=== PATIENT | male | born 1930 | race American Indian/Alaskan Native ===

== ENCOUNTER 2018-05-24 17:52 | Observation (INO) | payer MEDICARE, BC ==
[2018-05-24 18:06] VITALS: BMI 25.6
--- NOTE | 2018-05-24 18:06 | ED PDOC ---
Arrival/HPI - General Chief Complaint: Altered Mental Status Time Seen by Provider: 05/24/18 17:54 Historian: Patient, Family (daughter and son) - History of Present Illness Time/Duration: Prior to Arrival Symptom Onset: Sudden Symptom Course: Resolved Severity Level: Severe Activities at Onset: Rest Associated Symptoms (Text): 05/24/18 18:04 Patient was sitting in a chair at the kitchen table reading the newspaper just prior to arrival when the daughter reports that he suddenly went unresponsive. His head slumped and he was drooling. He was unresponsive to verbal stimuli. There was no seizure activity. The episode lasted for several minutes and the patient is now awake alert and back to his baseline. He denies any chest pain or dyspnea. No palpitations. No abdominal pain nausea or vomiting. The son reports that he hit the back of his head one week ago, but has been fine since then. Thi s has never occurred previously. Past Medical History - Past History Past History: No Previous - Infectious Disease Hx of Infectious Diseases: None - Tetanus Immunization Tetanus Immunization: Unknown - Cardiac Hx Pacemaker: No - Pulmonary Hx Respiratory Disorders: Yes Hx Pneumonia: Yes - Neurological Hx Paralysis: No - HEENT Hx HEENT Disorder: No (WEARS RX GLASSES) Hx Cataracts: Yes (LENS IMPLANT TO LEFT EYE,CATARACT SX RIGHT EYE) - Renal Hx Renal Disorder: No - Endocrine/Metabolic Hx Hypothyroidism: Yes - Hematological/Oncological Hx Blood Transfusions: No Hx Blood Transfusion Reaction: No - Integumentary Hx Dermatological Disorder: Yes (PATCHY DARKENED SKIN DICOLORATION TO ELIZABETH LE.AT TIMES ITCHY.) - Musculoskeletal/Rheumatological Hx Musculoskeletal Disorders: Yes (SPINAL STENOSIS) - Gastrointestinal Hx Gastrointestinal Disorders: No - Genitourinary/Gynecological Hx Reproductive Disorders: Yes - Psychiatric Hx Emotional Abuse: No Hx Physical Abuse: No Hx Substance Use: No - Past Surgical History Past Surgical History: No Previous - Surgical History Hx Cataract Extraction: Yes (Lt eye) - Anesthesia Hx Anesthesia: Yes Hx Anesthesia Reactions: No Hx Malignant Hyperthermia: No - Suicidal Assessment Feels Threatened In Home Enviroment: No Family/Social History - Physician Review Nursing Documentation Reviewed: Yes Family/Social History: Unknown Family HX Smoking Status: Never Smoked Hx Alcohol Use: Yes (SOCIALLY) Hx Substance Use: No Hx Substance Use Treatment: No Allergies/Home Meds Allergies/Adverse Reactions: Allergies tramadol HCl [From Ultra] Adverse Reaction (Mild, Verified 11/03/15 09:50) DIZZINESS NOTED ON H&P, PT REPORTS NOT REMEMBERING EXACTLY. Home Medications: Home Meds Medication Instructions Recorded Confirmed Dutasteride 0.5 mg PO DAILY 09/11/15 05/24/18 Folic Acid 1 tab PO DAILY 05/24/18 05/24/18 Memantine [Namenda] 1 tab PO DAILY 05/24/18 05/24/18 RX: Levothyroxine [Synthroid] 75 mcg PO QOTHERDAY 05/24/18 05/24/18 RX: Levothyroxine [Synthroid] 88 mcg PO QOTHERDAY 05/24/18 05/24/18 Review of Systems - Physician Review All systems were reviewed & negative as marked: Yes - Review of Systems Respiratory: absent: SOB, Cough, Wheezing Cardiovascular: Syncope. absent: Chest Pain, Palpitations, SHEA Gastrointestinal: absent: Abdominal Pain, Diarrhea, Nausea, Vomiting Genitourinary Male: absent: Dysuria, Frequency, Hematuria Neurological: absent: Headache, Dizziness, Focal Weakness, Gait Changes, Speech Changes, Facial Droop, Disequilibrium, Seizure Physical Exam Temperature: Afebrile Blood Pressure: Normal Pulse: Regular Respiratory Rate: Normal Appearance: Positive for: Well-Appearing, Non-Toxic, Comfortable Pain Distress: None Mental Status: Positive for: Alert and Oriented X 3 - Systems Exam Head: Present: Atraumatic, Normocephalic Pupils: Present: PERRL Extroacular Muscles: Present: EOMI Conjunctiva: Present: Normal Ears: Present: NORMAL TM, Normal Canal. No: Erythema, TM Bulging Mouth: Present: Moist Mucous Membranes Pharnyx: No: ERYTHEMA, EXUDATE, TONSILS ENLARGED Neck: Present: Normal Range of Motion Respiratory/Chest: Present: Clear to Auscultation, Good Air Exchange, Decreased Breath Sounds. No: Respiratory Distress, Accessory Muscle Use Cardiovascular: Present: Regular Rate and Rhythm, Normal S1, S2. No: Murmurs Abdomen: No: Tenderness, Distention, Peritoneal Signs, Rebound, Guarding Upper Extremity: Present: Normal Inspection. No: Cyanosis, Edema Lower Extremity: Present: Normal Inspection. No: Edema Neurological: Present: GCS=15, CN II-XII Intact, Speech Normal, Motor Func Grossly Intact, Normal Sensory Function, Normal Cerebellar Funct Skin: Present: Warm, Dry, Normal Color. No: Rashes Psychiatric: Present: Alert, Oriented x 3, Normal Insight, Normal Concentration Medical Decision Making ED Course and Treatment: 05/24/18 18:07 EKG shows normal sinus rhythm rate approximately [address] or T-wave changes. 05/24/18 19:22 Discussed with the medical observer and house physician. Patient will be placed on telemetry observation for syncope. - RAD Interpretation Radiology Orders: 05/24/18 18:02 HEAD W/O CONTRAST [CT] Stat 05/24/18 18:03 CHEST PORTABLE [RAD] Stat CT scan of the head as read by the radiologist shows no acute findings. X-ray chest one view as read by the radiologist shows stable findings and no acute findings. Dairy Equipment Specialist: Radiologist Disposition/Present on Arrival - Present on Arrival Any Indicators Present on Arrival: No History of DVT/PE: No History of Uncontrolled Diabetes: No Urinary Catheter: No History of Decub. Ulcer: No History Surgical Site Infection Following: None - Disposition Have Diagnosis and Disposition been Completed?: Yes Diagnosis: Syncope Disposition: HOSPITALIZED Disposition Time: 19:22 Patient Plan: Observation, Telemetry Patient Problems: Current Active Problems Problem Status Onset Syncope Acute Condition: GOOD
--- NOTE | 2018-05-24 18:32 | RAD ---
Date of service: 05/24/2018 HISTORY: syncope COMPARISON: Chest radiograph dated 09/11/2015. FINDINGS: LUNGS: No active pulmonary disease. PLEURA: Stable eventration/elevation of the left hemidiaphragm. No significant pleural effusion identified, no pneumothorax apparent. CARDIOVASCULAR: Aortic atherosclerotic calcifications. Cardiomediastinal silhouette within normal limits. OSSEOUS STRUCTURES: Unchanged. VISUALIZED UPPER ABDOMEN: Normal. OTHER FINDINGS: None. IMPRESSION: No active disease.
--- NOTE | 2018-05-24 18:39 | CT ---
Date of service: 05/24/2018 PROCEDURE: CT HEAD WITHOUT CONTRAST. HISTORY: syncope COMPARISON: 04/17/2014 TECHNIQUE: Axial computed tomography images were obtained through the head/brain without intravenous contrast. Supplemental Coronal and Sagittal projections created and reviewed. Radiation dose: Total exam DLP = 82.50 mGy-cm. This CT exam was performed using one or more of the following dose reduction techniques: Automated exposure control, adjustment of the mA and/or kV according to patient size, and/or use of iterative reconstruction technique. FINDINGS: HEMORRHAGE: No intracranial hemorrhage. BRAIN: No mass effect or edema. Cortical and cerebellar atrophy, periventricular small vessel disease. VENTRICLES: Unremarkable. No hydrocephalus. CALVARIUM: Unremarkable. PARANASAL SINUSES: Chronic ethmoid air cell disease. Chronic sphenoid air cell disease. Maxillary and frontal sinuses well aerated. MASTOID AIR CELLS: Unremarkable as visualized. No inflammatory changes. OTHER FINDINGS: None. IMPRESSION: No acute intracranial abnormalities. No significant findings to account for the clinical presentation. Additional benign and/or incidental findings described above. No significant interval change compared to the prior examination(s).
[2018-05-24 18:50] LABS: BASO # 0.03 K/mm3 (0.0-2.0); BASO % 0.4 % (0.0-3.0); EOS # 0.1 (0.0-0.7); EOS % 1.7 % (1.5-5.0); GRAN # 5.51 (1.4-6.5); GRAN % 70.1 % (50.0-68.0); HEMOGLOBIN 11.5 g/dL (14.0-18.0); LYMPH # 1.5 (1.2-3.4); LYMPH % 19.5 % (22.0-35.0); MEAN CELL VOLUME 94.1 fl (80.0-105.0); MEAN CORPUSCULAR HEMOGLOBIN 29.6 pg (25.0-35.0); MEAN CORPUSCULAR HGB CONC 31.4 g/dl (31.0-37.0); MEAN PLATELET VOLUME 9.9 fl (7.0-11.0); MONO # 0.7 (0.1-0.6); MONO % 8.3 % (1.0-6.0); RBC 3.89 10^6/uL (3.5-6.1); RED CELL DISTRIBUTION WIDTH 13.1 % (11.5-14.5); WHITE BLOOD COUNT 7.9 10^3/uL (4.5-11.0)
[2018-05-24 18:59] LABS: PROTHROMBIN TIME 11.4 SECONDS (9.4-12.5)
[2018-05-24 19:00] LABS: ALB/GLOB RATIO 1.1 (1.1-1.8); ALBUMIN 3.9 g/dL (3.0-4.8); ALT/SGPT 24 U/L (7-56); AST/SGOT 30 U/L (17-59); BLOOD UREA NITROGEN 27 mg/dL (7-21); GFR NON-AFRICAN AMERICAN 44
[2018-05-24 19:11] LABS: TROPONIN I < 0.01 ng/mL
[2018-05-24 19:48] LABS: URINE BILIRUBIN NEGATIVE (NEGATIVE); URINE BLOOD NEGATIVE (NEGATIVE); URINE GLUCOSE (UA) NEGATIVE (NEGATIVE); URINE LEUKOCYTE ESTERASE NEGATIVE Leu/uL (NEGATIVE); URINE PROTEIN TRACE mg/dL (<30 mg/dL); URINE UROBILINOGEN 0.2 E.U./dL (<1 E.U./dL)
[2018-05-24 19:50] LABS: URINE APPEARANCE CLEAR (CLEAR); URINE COLOR YELLOW (YELLOW)
[2018-05-24 19:58] LABS: URINE RBC 0 - 2 /hpf (0-2); URINE WBC NEGATIVE /hpf (0-6)
[2018-05-24 19:59] LABS: URINE BACTERIA NEG (NEG)
--- NOTE | 2018-05-24 20:40 | CP.PCM.HP ---
<Robert Severino - Last Filed: 05/24/18 20:48> History of Present Illness - History of Present Illness History of Present Illness: Robert Severino DO, PGY-1 Hospitalist Admission History and Physical for Dr. Fuller CC: possible syncopal episode HPI: Mr. Pedroza is an 88 year old male with PMH of hypothyroidism, dementia, and BPH who presents to ED following a questionable syncopal episode earlier this afternoon. His daughter is at bedside and provided most of the history. She states that he appeared to have passed out while lying on the couch because he was not responsive. This episode lasted for about 5 minutes before he woke up again. He denies any post-ictal changes such as bowel/bladder incontinence or confusion afterwards. Mr. Pedroza believes he did not pass out and states that he simply fell asleep. He does not recall any pre-syncopal symptoms of dizziness, blurred vision, or FLORES. Other than the syncopal episode, Mr. Pedroza offers no complaints and denies fever/chills, CP, SOB, abdominal pain/nausea/vomiting, FLORES, blurred vision, dizziness, slurred speech, new onset weakness, or peripheral numbness/tingling. PMH: hypothyroidism, dementia, BPH PSH: cataracts b/l Fam Hx: reviewed, non-contributory Home medications: ASA 81 daily, dutasteride 0.5 daily, synthroid 88 mcg one day 75 mcg other day, folate 1 daily, memantine 10 daily All: tramadol Soc Hx: denies tobacco, alcohol, drug use. Present on Admission - Present on Admission Any Indicators Present on Admission: No History of DVT/PE: No History of Uncontrolled Diabetes: No Urinary Catheter: No Decubitus Ulcer Present: No Review of Systems - Constitutional Constitutional: absent: Chills, Fever - EENT Eyes: absent: Blurred Vision, Change in Vision - Cardiovascular Cardiovascular: absent: Chest Pain, Dyspnea - Respiratory Respiratory: absent: Cough, Dyspnea, Wheezing - Gastrointestinal Gastrointestinal: absent: Abdominal Pain, Nausea, Vomiting - Genitourinary Genitourinary: absent: Change in Urinary Stream, Difficulty Urinating - Integumentary Integumentary: absent: Change in Pigmentation, Changing Lesions Past Patient History - Infectious Disease Hx of Infectious Diseases: None - Tetanus Immunizations Tetanus Immunization: Unknown - Past Social History Smoking Status: Never Smoked - CARDIAC Hx Pacemaker: No - PULMONARY Hx Respiratory Disorders: Yes Hx Pneumonia: Yes - NEUROLOGICAL Hx Paralysis: No - HEENT Hx HEENT Problems: No (WEARS RX GLASSES) Hx Cataracts: Yes (LENS IMPLANT TO LEFT EYE,CATARACT SX RIGHT EYE) - RENAL Hx Chronic Kidney Disease: No - ENDOCRINE/METABOLIC Hx Hypothyroidism: Yes - HEMATOLOGICAL/ONCOLOGICAL Hx Blood Transfusions: No Hx Blood Transfusion Reaction: No - INTEGUMENTARY Hx Dermatological Problems: Yes (PATCHY DARKENED SKIN DICOLORATION TO ELIZABETH LE.AT TIMES ITCHY.) - MUSCULOSKELETAL/RHEUMATOLOGICAL Hx Musculoskeletal Disorders: Yes (SPINAL STENOSIS) - GASTROINTESTINAL Hx Gastrointestinal Disorders: No - GENITOURINARY/GYNECOLOGICAL Hx Reproductive Disorders: Yes - PSYCHIATRIC Hx Emotional Abuse: No Hx Physical Abuse: No Hx Substance Use: No - SURGICAL HISTORY Hx Cataract Extraction: Yes (Lt eye) - ANESTHESIA Hx Anesthesia: Yes Hx Anesthesia Reactions: No Hx Malignant Hyperthermia: No Meds Allergies/Adverse Reactions: Allergies Allergy/AdvReac Type Severity Reaction Status Date / Time tramadol HCl [From Ultram] AdvReac Mild DIZZINESS Verified 11/03/15 09:50 Physical Exam - Constitutional Appears: Non-toxic, No Acute Distress - Head Exam Head Exam: ATRAUMATIC, NORMOCEPHALIC - Eye Exam Eye Exam: EOMI, Normal appearance, PERRL - ENT Exam ENT Exam: Mucous Membranes Dry - Neck Exam Neck exam: Positive for: Full Rom, Normal Inspection - Respiratory Exam Respiratory Exam: Clear to Auscultation Bilateral, NORMAL BREATHING PATTERN. absent: Accessory Muscle Use, Rales, Rhonchi, Wheezes, Respiratory Distress - Cardiovascular Exam Cardiovascular Exam: REGULAR RHYTHM, RRR, +S1, +S2. absent: Diastolic murmur, Gallop, Rubs, Systolic Murmur - GI/Abdominal Exam GI & Abdominal Exam: Normal Bowel Sounds, Soft. absent: Guarding, Tenderness - Extremities Exam Extremities exam: Positive for: normal inspection. Negative for: pedal edema - Back Exam Back exam: NORMAL INSPECTION - Neurological Exam Neurological exam: Alert, Oriented x3 - Psychiatric Exam Psychiatric exam: Normal Affect, Normal Mood - Skin Skin Exam: Dry, Intact, Warm Results - Vital Signs Recent Vital Signs: Last Vital Signs Temp 98.1 F 05/24/18 18:05 Pulse 76 05/24/18 18:05 Resp 17 05/24/18 18:05 BP 128/82 11/02/18 18:05 Pulse Ox 95 05/24/18 18:05 - Labs Result Diagrams: 05/24/18 18:35 05/24/18 18:35 Labs: Laboratory Results - last 24 hr 05/24/18 05/24/18 05/24/18 18:01 18:35 18:35 WBC 7.9 RBC 3.89 Hgb 11.5 L Hct 36.6 L MCV 94.1 MCH 29.6 MCHC 31.4 RDW 13.1 Plt Count 146 MPV 9.9 Gran % 70.1 H Lymph % (Auto) 19.5 L Cass % (Auto) 8.3 H Eos % (Auto) 1.7 Baso % (Auto) 0.4 Gran # 5.51 Lymph # (Auto) 1.5 Cass # (Auto) 0.7 H Eos # (Auto) 0.1 Baso # (Auto) 0.03 PT 11.4 INR 1.00 APTT 26.0 Sodium Potassium Chloride Carbon Dioxide Anion Gap BUN Creatinine Est GFR ( Amer) Est GFR (Non-Af Amer) POC Glucose (mg/dL) 192 H Random Glucose Calcium Magnesium Total Bilirubin AST ALT Alkaline Phosphatase Lactate Dehydrogenase Total Creatine Kinase Troponin I Total Protein Albumin Globulin Albumin/Globulin Ratio Urine Color Urine Appearance Urine pH Ur Specific Beaver Urine Protein Urine Glucose (UA) Urine Ketones Urine Blood Urine Nitrate Urine Bilirubin Urine Urobilinogen Ur Leukocyte Esterase Urine RBC Urine WBC Ur Epithelial Cells Urine Bacteria 05/24/18 05/24/18 18:35 19:32 WBC RBC Hgb Hct MCV MCH MCHC RDW Plt Count MPV Gran % Lymph % (Auto) Cass % (Auto) Eos % (Auto) Baso % (Auto) Gran # Lymph # (Auto) Cass # (Auto) Eos # (Auto) Baso # (Auto) PT INR APTT Sodium 140 Potassium 4.2 Chloride 104 Carbon Dioxide 28 Anion Gap 13 BUN 27 H Creatinine 1.5 Est GFR ( Amer) 53 Est GFR (Non-Af Amer) 44 POC Glucose (mg/dL) Random Glucose 172 H Calcium 9.0 Magnesium 2.2 Total Bilirubin 0.4 AST 30 ALT 24 Alkaline Phosphatase 107 Lactate Dehydrogenase 430 Total Creatine Kinase 64 Troponin I < 0.01 Total Protein 7.3 Albumin 3.9 Globulin 3.4 Albumin/Globulin Ratio 1.1 Urine Color Yellow Urine Appearance Clear Urine pH 6.0 Ur Specific Beaver 1.025 Urine Protein Trace H Urine Glucose (UA) Negative Urine Ketones Trace H Urine Blood Negative Urine Nitrate Negative Urine Bilirubin Negative Urine Urobilinogen 0.2 Ur Leukocyte Esterase Negative Urine RBC 0 - 2 Urine WBC Negative Ur Epithelial Cells None Urine Bacteria Neg Assessment & Plan - Assessment and Plan (Free Text) Assessment: 88 yo M with PMH of hypothyroidism, dementia, BPH presents to ED following a possible syncopal episode. He is admitted for observation and syncopal work up. Plan: 1. Possible syncopal episode Unclear whether patient had an actual syncopal episode Will get carotid US, TTE Neuro check q6h Cardiology consult Check CBC, CMP, TSH, T3, T4, B12, vitamin D 2. Hx hypothyroidism Will check TSH to r/o hypothyroid etiology of syncope Continue home synthroid 3. Hx BPH Continue dutasteride DVT/GI PPX: sc heparin, protonix Full Code HHD Monitor on telemetry Case and plan reviewed and discussed with my attending Dr. Alina Severino, DO IM Resident PGY-1 <Tg Fuller - Last Filed: 05/24/18 21:06> Results - Vital Signs Recent Vital Signs: Last Vital Signs Temp 98.1 F 05/24/18 18:05 Pulse 71 05/24/18 20:45 Resp 18 05/24/18 20:45 BP 142/83 05/24/18 20:45 Pulse Ox 98 05/24/18 20:45 - Labs Result Diagrams: 05/24/18 18:35 05/24/18 18:35 Labs: Laboratory Results - last 24 hr 05/24/18 05/24/18 05/24/18 18:01 18:35 18:35 WBC 7.9 RBC 3.89 Hgb 11.5 L Hct 36.6 L MCV 94.1 MCH 29.6 MCHC 31.4 RDW 13.1 Plt Count 146 MPV 9.9 Gran % 70.1 H Lymph % (Auto) 19.5 L Cass % (Auto) 8.3 H Eos % (Auto) 1.7 Baso % (Auto) 0.4 Gran # 5.51 Lymph # (Auto) 1.5 Cass # (Auto) 0.7 H Eos # (Auto) 0.1 Baso # (Auto) 0.03 PT 11.4 INR 1.00 APTT 26.0 Sodium Potassium Chloride Carbon Dioxide Anion Gap BUN Creatinine Est GFR ( Amer) Est GFR (Non-Af Amer) POC Glucose (mg/dL) 192 H Random Glucose Calcium Magnesium Total Bilirubin AST ALT Alkaline Phosphatase Lactate Dehydrogenase Total Creatine Kinase Troponin I Total Protein Albumin Globulin Albumin/Globulin Ratio Urine Color Urine Appearance Urine pH Ur Specific Beaver Urine Protein Urine Glucose (UA) Urine Ketones Urine Blood Urine Nitrate Urine Bilirubin Urine Urobilinogen Ur Leukocyte Esterase Urine RBC Urine WBC Ur Epithelial Cells Urine Bacteria 05/24/18 05/24/18 18:35 19:32 WBC RBC Hgb Hct MCV MCH MCHC RDW Plt Count MPV Gran % Lymph % (Auto) Cass % (Auto) Eos % (Auto) Baso % (Auto) Gran # Lymph # (Auto) Cass # (Auto) Eos # (Auto) Baso # (Auto) PT INR APTT Sodium 140 Potassium 4.2 Chloride 104 Carbon Dioxide 28 Anion Gap 13 BUN 27 H Creatinine 1.5 Est GFR ( Amer) 53 Est GFR (Non-Af Amer) 44 POC Glucose (mg/dL) Random Glucose 172 H Calcium 9.0 Magnesium 2.2 Total Bilirubin 0.4 AST 30 ALT 24 Alkaline Phosphatase 107 Lactate Dehydrogenase 430 Total Creatine Kinase 64 Troponin I < 0.01 Total Protein 7.3 Albumin 3.9 Globulin 3.4 Albumin/Globulin Ratio 1.1 Urine Color Yellow Urine Appearance Clear Urine pH 6.0 Ur Specific Beaver 1.025 Urine Protein Trace H Urine Glucose (UA) Negative Urine Ketones Trace H Urine Blood Negative Urine Nitrate Negative Urine Bilirubin Negative Urine Urobilinogen 0.2 Ur Leukocyte Esterase Negative Urine RBC 0 - 2 Urine WBC Negative Ur Epithelial Cells None Urine Bacteria Neg Attending/Attestation - Attestation I have personally seen and examined this patient.: Yes I have fully participated in the care of the patient.: Yes I have reviewed all pertinent clinical information: Yes
[2018-05-25 00:12] VITALS: RESP 18
[2018-05-25] MEDS ORDERED: Pantoprazole 40 mg EC Tab PO SCH (06:00)
[2018-05-25] MEDS ORDERED: Levothyroxine 88 MCG TAB PO SCH (06:00)
[2018-05-25 06:31] VITALS: O2SAT 100
[2018-05-25 07:13] LABS: BASO # 0.04 K/mm3 (0.0-2.0); BASO % 0.5 % (0.0-3.0); EOS # 0.2 (0.0-0.7); EOS % 2.6 % (1.5-5.0); GRAN # 4.89 (1.4-6.5); GRAN % 60.4 % (50.0-68.0); HEMOGLOBIN 11.2 g/dL (14.0-18.0); LYMPH # 2.3 (1.2-3.4); LYMPH % 28.3 % (22.0-35.0); MEAN CELL VOLUME 93.4 fl (80.0-105.0); MEAN CORPUSCULAR HEMOGLOBIN 29.6 pg (25.0-35.0); MEAN CORPUSCULAR HGB CONC 31.6 g/dl (31.0-37.0); MONO # 0.7 (0.1-0.6); MONO % 8.2 % (1.0-6.0); RBC 3.79 10^6/uL (3.5-6.1); RED CELL DISTRIBUTION WIDTH 12.9 % (11.5-14.5); WHITE BLOOD COUNT 8.1 10^3/uL (4.5-11.0)
[2018-05-25 07:34] LABS: ALBUMIN 3.6 g/dL (3.0-4.8); CALCIUM 9.1 mg/dL (8.4-10.5)
[2018-05-25] MEDS ORDERED: DUTASTERIDE 0.5 MG PO SCH (10:00)
[2018-05-25 12:10] VITALS: BP 148/82; TEMP 97.7
--- NOTE | 2018-05-25 13:25 | CARD ---
APPROVED REPORT Date of service: 05/25/2018 EXAM: Two-dimensional and M-mode echocardiogram with Doppler and color Doppler. INDICATION SYNCOPE 2D DIMENSIONS Left Atrium (2D)2.4 (1.6-4.0cm)IVSd1.2 (0.7-1.1cm) LVDd3.4 (3.9-5.9cm)PWd1.2 (0.7-1.1cm) LVDs2.4 (2.5-4.0cm)FS (%) 31.1 % LVEF (%)60.0 (>50%) M-Mode DIMENSIONS Aortic Root3.40 (2.2-3.7cm)Aortic Cusp Exc.1.60 (1.5-2.0cm) Aortic Valve AoV Peak Byttwapo453.0cm/Britney Peak GR.7mmHg Mitral Valve MV E Mhayncbx79.1cm/sMV A Rzoayzxl76.6cm/sE/A ratio1.1 TDI Lateral E' Peak V9.75cm/sMedial E' Peak V8.97cm/sE/Lateral E'7.5 E/Medial E'8.1 Tricuspid Valve TR Peak [id number]/sRAP [id number] Peak Gr.26mmHg [id number] LEFT VENTRICLE The left ventricle is normal size. There is normal left ventricular wall thickness. The left ventricular function is normal. The left ventricular ejection fraction is within the normal range. There is normal LV segmental wall motion. Transmitral Doppler flow pattern is Grade I-abnormal relaxation pattern. RIGHT VENTRICLE The right ventricle is normal size. There is normal right ventricular wall thickness. The right ventricular systolic function is normal. ATRIA The left atrium size is normal. The right atrium size is normal. AORTIC VALVE The aortic valve is not well visualized. No aortic regurgitation is present. There is no aortic valvular stenosis. MITRAL VALVE The mitral valve is not well visualized. There is no mitral valve regurgitation noted. There is no mitral valve stenosis. TRICUSPID VALVE The tricuspid valve is normal in structure. There is mild tricuspid regurgitation. There is mild pulmonary hypertension. PULMONIC VALVE The pulmonary valve is normal in structure. There is no pulmonic valvular regurgitation. GREAT VESSELS The aortic root is normal in size. PERICARDIAL EFFUSION There is a trace pericardial effusion. <Conclusion> The left ventricle is normal size. There is normal left ventricular wall thickness. The left ventricular function is normal. The left ventricular ejection fraction is within the normal range. There is normal LV segmental wall motion. Transmitral Doppler flow pattern is Grade I-abnormal relaxation pattern. There is mild tricuspid regurgitation. There is mild pulmonary hypertension.
[2018-05-25 14:05] VITALS: PULSE 94
--- NOTE | 2018-05-25 14:30 | US ---
PROCEDURE: Bilateral carotid artery duplex ultrasound HISTORY: Carotid stenosis PHYSICIAN(S): Mulugeta Morales MD. TECHNIQUE: Duplex sonography and color-flow Doppler were used to evaluate the carotid bifurcations and limited segments of the vertebral arteries bilaterally. FINDINGS: There is mild smooth heterogeneous plaque noted at the carotid bifurcations bilaterally. The peak systolic velocity in the proximal right internal carotid artery is 69 cm/sec. This corresponds to a 20 to 39% proximal right ICA stenosis. Normal systolic velocities are noted in the proximal right external carotid artery. There is antegrade flow in the right vertebral artery. The peak systolic velocity in the proximal left internal carotid artery is 64 cm/sec. This corresponds to a 20 to 39% proximal left ICA stenosis. Normal systolic velocities are noted in the proximal left external carotid artery. There is antegrade flow in the left vertebral artery. IMPRESSION: 1. 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 2. Antegrade flow in both vertebral arteries.
--- NOTE | 2018-05-25 15:32 | CP.PCM.PN ---
<Meaghan Miller - Last Filed: 05/25/18 15:51> Subjective - Date & Time of Evaluation Date of Evaluation: 05/25/18 Time of Evaluation: 15:28 - Subjective Subjective: Meaghan Miller DO PGY-[address] Jara: Pt was seen and examined in the AM at bedside. Upon asking to clarify his story pt states that he was just tired and fell asleep reading the paper, but pts daughter states that he was unresponsive for about 5 minutes. Pt does not recall this episode, nor similar occurrences in the past. He is denying any acute overnight events and states that he is not having any pain or any acute complaints at this time. He is tolerating his diet. Pt is AOx3, denies any chest pain, nausea, vomiting, fevers, chills, cough, SOB or dysuria. Objective - Vital Signs/Intake and Output Vital Signs (last 24 hours): Temp Pulse Resp BP Pulse Ox 97.7 F 94 H 18 148/82 100 05/25/18 12:00 05/25/18 14:00 05/25/18 12:00 05/25/18 12:00 05/25/18 06:00 Intake and Output: 05/25/18 05/25/18 06:59 18:59 Intake Total 240 Output Total 630 Balance -390 - Medications Medications: Current Medications Acetaminophen (Tylenol 325mg Tab) 650 mg PO Q6H PRN PRN Reason: Pain, moderate (4-7) Aspirin (Ecotrin) 81 mg PO DAILY [facility] Last Admin: 05/25/18 09:19 Dose: 81 mg Folic Acid (Folic Acid) 1 mg PO DAILY [facility] Last Admin: 05/25/18 09:19 Dose: 1 mg Heparin Sodium (Porcine) (Heparin) 5,000 units SC Q8 [facility]; Protocol Last Admin: 05/25/18 13:05 Dose: 5,000 units Latanoprost (Xalatan Opht) 0 ml OU HS [facility] Levothyroxine Sodium (Synthroid) 75 mcg PO Q48H [facility] Levothyroxine Sodium (Synthroid) 88 mcg PO Q48H [facility] Last Admin: 05/25/18 05:31 Dose: 88 mcg Memantine (Namenda) 10 mg PO DAILY [facility] Last Admin: 05/25/18 09:19 Dose: 10 mg Home Med - (Dutasteride 0.5 Mg) 0.5 mg PO DAILY [facility] Pantoprazole Sodium (Protonix Ec Tab) 40 mg PO 0600 [facility] Last Admin: 05/25/18 05:31 Dose: 40 mg - Labs Labs: 05/25/18 06:30 05/25/18 06:30 PT 11.4 SECONDS (9.4-12.5) 05/24/18 18:35 INR 1.00 05/24/18 18:35 APTT 26.0 Seconds (25.1-36.5) 05/24/18 18:35 - Constitutional Appears: Well, Non-toxic, No Acute Distress - Head Exam Head Exam: ATRAUMATIC, NORMAL INSPECTION, NORMOCEPHALIC - Eye Exam Eye Exam: EOMI, Normal appearance Pupil Exam: PERRL - Respiratory Exam Respiratory Exam: Clear to Ausculation Bilateral, NORMAL BREATHING PATTERN. absent: Rales, Rhonchi, Wheezes - Cardiovascular Exam Cardiovascular Exam: RRR, +S1, +S2. absent: Gallop, Rubs - GI/Abdominal Exam GI & Abdominal Exam: Soft, Normal Bowel Sounds. absent: Firm, Guarding, Rigid, Tenderness - Back Exam Back Exam: NORMAL INSPECTION. absent: CVA tenderness (L), CVA tenderness (R) - Neurological Exam Neurological Exam: Alert, Awake, Oriented x3 - Psychiatric Exam Psychiatric exam: Normal Affect, Normal Mood - Skin Skin Exam: Dry, Intact, Normal Color, Warm Assessment and Plan - Assessment and Plan (Free Text) Assessment: 88 yo M with PMH of hypothyroidism, dementia, BPH presents to ED following a possible syncopal episode. Due to daughters history and pts dementia, we will do neurology work up for seizure. Plan: 1. Possible syncopal episode vs seizure - Unclear whether patient had an actual syncopal episode - Will get carotid US - B/l 20-39% proximal ICA stenosis - Echo - LVEF is within normal range, mild TR, mild Pulm HTN - Neuro check q6h - Neuro consult to r/o seizure activity - Cardiology consult - TSH - .22 - F/u free T4 2. Hx hypothyroidism - TSH .22 - F/u free T4 - Continue home synthroid 3. Hx BPH - Continue dutasteride 4. PPX - DVT/GI: sc heparin, protonix - Full Code - HHD - Monitor on telemetry Case and plan reviewed and discussed with my attending Dr. Jara <Javon Jara - Last Filed: 05/25/18 17:22> Objective - Vital Signs/Intake and Output Vital Signs (last 24 hours): Temp Pulse Resp BP Pulse Ox 97.7 F 94 H 18 148/82 100 05/25/18 12:00 05/25/18 14:00 05/25/18 12:00 05/25/18 12:00 05/25/18 06:00 Intake and Output: 05/25/18 05/25/18 06:59 18:59 Intake Total 240 Output Total 630 Balance -390 - Medications Medications: Current Medications Acetaminophen (Tylenol 325mg Tab) 650 mg PO Q6H PRN PRN Reason: Pain, moderate (4-7) Aspirin (Ecotrin) 81 mg PO DAILY [facility] Last Admin: 05/25/18 09:19 Dose: 81 mg Folic Acid (Folic Acid) 1 mg PO DAILY [facility] Last Admin: 05/25/18 09:19 Dose: 1 mg Heparin Sodium (Porcine) (Heparin) 5,000 units SC Q8 [facility]; Protocol Last Admin: 05/25/18 13:05 Dose: 5,000 units Latanoprost (Xalatan Opht) 0 ml OU HS [facility] Levothyroxine Sodium (Synthroid) 75 mcg PO Q48H [facility] Levothyroxine Sodium (Synthroid) 88 mcg PO Q48H [facility] Last Admin: 05/25/18 05:31 Dose: 88 mcg Memantine (Namenda) 10 mg PO DAILY [facility] Last Admin: 05/25/18 09:19 Dose: 10 mg Home Med - (Dutasteride 0.5 Mg) 0.5 mg PO DAILY [facility] Pantoprazole Sodium (Protonix Ec Tab) 40 mg PO 0600 [facility] Last Admin: 05/25/18 05:31 Dose: 40 mg - Labs Labs: 05/25/18 06:30 05/25/18 06:30 PT 11.4 SECONDS (9.4-12.5) 05/24/18 18:35 INR 1.00 05/24/18 18:35 APTT 26.0 Seconds (25.1-36.5) 05/24/18 18:35 Attending/Attestation - Attestation I have personally seen and examined this patient.: Yes I have fully participated in the care of the patient.: Yes I have reviewed all pertinent clinical information, including history, physical exam and plan: Yes Notes (Text): 05/25/18 17:20 Attending note; Patient seen and examined with resident. Patient is alert and awake. Denies headache, dizziness. Denies any nausea, vomiting. Denies any urinary, bowel symptoms. Patient is a 88 yo Male with PMH of hypothyroidism, dementia, BPH presents to ED following a possible syncopal episode. According to patient's daughter patient was briefly unresponsive for a few minutes . No seizure like activity noted .no significant fall or injury . Patient is currently completely awake and alert .no memory problems . CT head is negative . Recent MRI shows chronic microvascular changes. Cardiac workup is negative. Cardiac enzymes negative. Echocardiogram showed normal ejection fraction. Cardiology evaluation appreciated. Carotid Doppler without significant stenosis. Case discussed with neurology in detail. Patient can be discharged home. PT evaluation appreciated. Patient will follow up with neurology DR. bains next . Follow-up with PMD . 05/25/18 17:22
--- NOTE | 2018-05-25 15:32 | CARD ---
APPROVED REPORT Date of service: 05/25/2018 EKG Measurement Heart [id number] <Conclusion> Normal sinus rhythm Normal ECG
--- NOTE | 2018-05-25 15:39 | CARD ---
APPROVED REPORT Date of service: 05/24/2018 EKG Measurement Heart [id number] <Conclusion> Normal sinus rhythm Normal ECG
--- NOTE | 2018-05-25 17:10 | CP.PCM.DIS ---
<Meaghan Miller - Last Filed: 05/25/18 17:21> Provider - Provider Date of Admission: 05/24/18 19:20 Attending physician: Javon Jara MD Primary care physician: Harpreet Fajardo MD Time Spent in preparation of Discharge (in minutes): 45 Diagnosis - Discharge Diagnosis (1) Syncope Status: Acute Hospital Course - Lab Results Lab Results: Most Recent Lab Values WBC 8.1 10^3/uL (4.5-11.0) 05/25/18 06:30 RBC 3.79 10^6/uL (3.5-6.1) 05/25/18 06:30 Hgb 11.2 g/dL (14.0-18.0) L 05/25/18 06:30 Hct 35.4 % (42.0-52.0) L 05/25/18 06:30 MCV 93.4 fl (80.0-105.0) 05/25/18 06:30 MCH 29.6 pg (25.0-35.0) 05/25/18 06:30 MCHC 31.6 g/dl (31.0-37.0) 05/25/18 06:30 RDW 12.9 % (11.5-14.5) 05/25/18 06:30 Plt Count 151 10^3/uL (120.0-450.0) 05/25/18 06:30 MPV 10.0 fl (7.0-11.0) 05/25/18 06:30 Gran % 60.4 % (50.0-68.0) 05/25/18 06:30 Lymph % (Auto) 28.3 % (22.0-35.0) 05/25/18 06:30 [place] % (Auto) 8.2 % (1.0-6.0) H 05/25/18 06:30 Eos % (Auto) 2.6 % (1.5-5.0) 05/25/18 06:30 Baso % (Auto) 0.5 % (0.0-3.0) 05/25/18 06:30 Gran # 4.89 (1.4-6.5) 05/25/18 06:30 Lymph # (Auto) 2.3 (1.2-3.4) 05/25/18 06:30 [place] # (Auto) 0.7 (0.1-0.6) H 05/25/18 06:30 Eos # (Auto) 0.2 (0.0-0.7) 05/25/18 06:30 Baso # (Auto) 0.04 K/mm3 (0.0-2.0) 05/25/18 06:30 PT 11.4 SECONDS (9.4-12.5) 05/24/18 18:35 INR 1.00 05/24/18 18:35 APTT 26.0 Seconds (25.1-36.5) 05/24/18 18:35 Sodium 139 mmol/L (132-148) 05/25/18 06:30 Potassium 5.1 mmol/L (3.6-5.0) H 05/25/18 06:30 Chloride 107 mmol/L (98-107) 05/25/18 06:30 Carbon Dioxide 27 mmol/L (21-33) 05/25/18 06:30 Anion Gap 10 (10-20) 05/25/18 06:30 BUN 27 mg/dL (7-21) H 05/25/18 06:30 Creatinine 1.5 mg/dl (0.8-1.5) 05/25/18 06:30 Est GFR ( Amer) 53 05/25/18 06:30 Est GFR (Non-Af Amer) 44 05/25/18 06:30 POC Glucose (mg/dL) 139 mg/dL (65-110) H 05/24/18 21:42 Random Glucose 100 mg/dL (70-110) 05/25/18 06:30 Calcium 9.1 mg/dL (8.4-10.5) 05/25/18 06:30 Phosphorus 3.9 mg/dL (2.5-4.5) 05/25/18 06:30 Magnesium 2.2 mg/dL (1.7-2.2) 05/25/18 06:30 Total Bilirubin 0.6 mg/dL (0.2-1.3) 05/25/18 06:30 AST 26 U/L (17-59) 05/25/18 06:30 ALT 21 U/L (7-56) 05/25/18 06:30 Alkaline Phosphatase 100 U/L (38-126) 05/25/18 06:30 Lactate Dehydrogenase 430 U/L (333-699) 05/24/18 18:35 Total Creatine Kinase 64 U/L (35-230) 05/24/18 18:35 Troponin I < 0.01 ng/mL 05/25/18 06:30 Total Protein 7.0 g/dL (5.8-8.3) 05/25/18 06:30 Albumin 3.6 g/dL (3.0-4.8) 05/25/18 06:30 Globulin 3.4 gm/dL 05/25/18 06:30 Albumin/Globulin Ratio 1.0 (1.1-1.8) L 05/25/18 06:30 Triglycerides 47 mg/dL (35-160) 05/25/18 06:30 Cholesterol 140 mg/dL (130-200) 05/25/18 06:30 LDL Cholesterol Direct 70 mg/dL (0-129) 05/25/18 06:30 HDL Cholesterol 57 mg/dL (29-60) 05/25/18 06:30 Vitamin B12 495 pg/mL (239-931) 05/25/18 06:30 25-OH Vitamin D Total 43.5 NG/ML (30.0-100.0) 05/25/18 06:30 TSH 3rd Generation 0.22 mIU/mL (0.46-4.68) L 05/25/18 06:30 Urine Color Yellow (YELLOW) 05/24/18 19:32 Urine Appearance Clear (CLEAR) 05/24/18 19:32 Urine pH 6.0 (4.7-8.0) 05/24/18 19:32 Ur Specific [place] 1.025 (1.005-1.035) 05/24/18 19:32 Urine Protein Trace mg/dL (<30 mg/dL) H 05/24/18 19:32 Urine Glucose (UA) Negative mg/dL (NEGATIVE) 05/24/18 19:32 Urine Ketones Trace mg/dL (NEGATIVE) H 05/24/18 19:32 Urine Blood Negative (NEGATIVE) 05/24/18 19:32 Urine Nitrate Negative (NEGATIVE) 05/24/18 19: Urine Bilirubin Negative (NEGATIVE) 05/24/18 19:32 Urine Urobilinogen 0.2 E.U./dL (<1 E.U./dL) 05/24/18 19:32 Ur Leukocyte Esterase Negative Almita/uL (NEGATIVE) 05/24/18 19:32 Urine RBC 0 - 2 /hpf (0-2) 05/24/18 19:32 Urine WBC Negative /hpf (0-6) 05/24/18 19:32 Ur Epithelial Cells None /hpf (0-5) 05/24/18 19:32 Urine Bacteria Neg (NEG) 05/24/18 19:32 - Hospital Course Hospital Course: Upon Admission: Mr. Pedroza is an 88 year old male with PMH of hypothyroidism, dementia, and BPH who presents to ED following a questionable syncopal episode earlier this afternoon. His daughter is at bedside and provided most of the history. She states that he appeared to have passed out while lying on the couch because he was not responsive. This episode lasted for about 5 minutes before he woke up again. He denies any post-ictal changes such as bowel/bladder incontinence or confusion afterwards. Mr. Pedroza believes he did not pass out and states that he simply fell asleep. He does not recall any pre-syncopal symptoms of dizz iness, blurred vision, or FLORES. Other than the syncopal episode, Mr. Pedroza offers no complaints and denies fever/chills, CP, SOB, abdominal pain/nausea/vomiting, FLORES, blurred vision, dizziness, slurred speech, new onset weakness, or peripheral numbness/tingling. Hospital Course: Pt was being worked up for syncopal episode. Cardiology and neuro were put on board. Carotid artery US showed b/l 20-39% proximal ICA stenosis. ECHO showed a LVEF, mild TR, and mild pulm HTN. TSH was noted to a little low at .22. Pt had no symptomatology of syncope or seizure like activity while at the hospital. Ca rdiology and neurology both cleared the pt, but neurology will follow up with the pt as an outpt and an appointment has been scheduled for 05/30/18. The pt was informed of his clearance by both cardio and neurology and the pt shows understanding and is in agreement with the discharge plan. All pts questions and concerns were addressed before d/c. Upon Discharge: Pt was specifically instructed to: Follow up with Dr Fajardo in 1 week. Follow up with Neurology Dr Bains .You already have an appointment with him on 05/30/2018. Resume your home medications as directed. Your TSH was low. Please repeat it with your primary care doctor in 4-6 weeks. Return to the nearest hospital in case symptoms return. Pt reported understanding of the discharge instructions and is in agreement with the plan, all questions and concerns were answered. Discharge Exam - Head Exam Head Exam: ATRAUMATIC, NORMAL INSPECTION, NORMOCEPHALIC - Eye Exam Eye Exam: EOMI, Normal appearance Pupil Exam: PERRL - Respiratory Exam Respiratory Exam: Clear to PA & Lateral, NORMAL BREATHING PATTERN, UNREMARKABLE. absent: Accessory Muscle Use, Rales, Rhonchi, Wheezes, Respiratory Distress, Stridor - Cardiovascular Exam Cardiovascular Exam: RRR, +S1, +S2. absent: Gallop, Rubs - GI/Abdominal Exam GI & Abdominal Exam: Normal Bowel Sounds, Soft, Unremarkable. absent: Rigid, Tenderness - Extremities Exam Extremities exam: normal inspection, pedal pulses present - Back Exam Back exam: NORMAL INSPECTION. absent: CVA tenderness (L), CVA tenderness (R) - Neurological Exam Neurological exam: Alert, Normal Gait, Oriented x3 - Psychiatric Exam Psychiatric exam: Normal Affect, Normal Mood - Skin Skin Exam: Dry, Intact, Normal Color, Warm Discharge Plan - Follow Up Plan Condition: GOOD Disposition: HOME/ ROUTINE Instructions: Preventing Falls in the Older Adult, Near Fainting (DC) Additional Instructions: Follow up with Dr Fajardo in 1 week. Follow up with Neurology Dr Bains .You already have an appointment with him on 05/30/2018. Resume your home medications as directed. Your TSH was low. Please repeat it with your primary care doctor in 4-6 weeks. Return to the nearest hospital in case symptoms return. Referrals: Arron Bains MD [Staff Provider] - Harpreet Fajardo MD [Primary Care Provider] - <Javon Jara - Last Filed: 05/25/18 18:04> Provider - Provider Date of Admission: 05/24/18 19:20 Attending physician: Javon Jara MD Primary care physician: Harpreet Fajardo MD Hospital Course - Lab Results Lab Results: Most Recent Lab Values WBC 8.1 10^3/uL (4.5-11.0) 05/25/18 06:30 RBC 3.79 10^6/uL (3.5-6.1) 05/25/18 06:30 Hgb 11.2 g/dL (14.0-18.0) L 05/25/18 06:30 Hct 35.4 % (42.0-52.0) L 05/25/18 06:30 MCV 93.4 fl (80.0-105.0) 05/25/18 06:30 MCH 29.6 pg (25.0-35.0) 05/25/18 06:30 MCHC 31.6 g/dl (31.0-37.0) 05/25/18 06:30 RDW 12.9 % (11.5-14.5) 05/25/18 06:30 Plt Count 151 10^3/uL (120.0-450.0) 05/25/18 06:30 MPV 10.0 fl (7.0-11.0) 05/25/18 06:30 Gran % 60.4 % (50.0-68.0) 05/25/18 06:30 Lymph % (Auto) 28.3 % (22.0-35.0) 05/25/18 06:30 [place] % (Auto) 8.2 % (1.0-6.0) H 05/25/18 06:30 Eos % (Auto) 2.6 % (1.5-5.0) 05/25/18 06:30 Baso % (Auto) 0.5 % (0.0-3.0) 05/25/18 06:30 Gran # 4.89 (1.4-6.5) 05/25/18 06:30 Lymph # (Auto) 2.3 (1.2-3.4) 05/25/18 06:30 [place] # (Auto) 0.7 (0.1-0.6) H 05/25/18 06:30 Eos # (Auto) 0.2 (0.0-0.7) 05/25/18 06:30 Baso # (Auto) 0.04 K/mm3 (0.0-2.0) 05/25/18 06:30 PT 11.4 SECONDS (9.4-12.5) 05/24/18 18:35 INR 1.00 05/24/18 18:35 APTT 26.0 Seconds (25.1-36.5) 05/24/18 18:35 Sodium 139 mmol/L (132-148) 05/25/18 06:30 Potassium 5.1 mmol/L (3.6-5.0) H 05/25/18 06:30 Chloride 107 mmol/L (98-107) 05/25/18 06:30 Carbon Dioxide 27 mmol/L (21-33) 05/25/18 06:30 Anion Gap 10 (10-20) 05/25/18 06:30 BUN 27 mg/dL (7-21) H 05/25/18 06:30 Creatinine 1.5 mg/dl (0.8-1.5) 05/25/18 06:30 Est GFR ( Amer) 53 05/25/18 06:30 Est GFR (Non-Af Amer) 44 05/25/18 06:30 POC Glucose (mg/dL) 139 mg/dL (65-110) H 05/24/18 21:42 Random Glucose 100 mg/dL (70-110) 05/25/18 06:30 Calcium 9.1 mg/dL (8.4-10.5) 05/25/18 06:30 Phosphorus 3.9 mg/dL (2.5-4.5) 05/25/18 06:30 Magnesium 2.2 mg/dL (1.7-2.2) 05/25/18 06:30 Total Bilirubin 0.6 mg/dL (0.2-1.3) 05/25/18 06:30 AST 26 U/L (17-59) 05/25/18 06:30 ALT 21 U/L (7-56) 05/25/18 06:30 Alkaline Phosphatase 100 U/L (38-126) 05/25/18 06:30 Lactate Dehydrogenase 430 U/L (333-699) 05/24/18 18:35 Total Creatine Kinase 64 U/L (35-230) 05/24/18 18:35 Troponin I < 0.01 ng/mL 05/25/18 06:30 Total Protein 7.0 g/dL (5.8-8.3) 05/25/18 06:30 Albumin 3.6 g/dL (3.0-4.8) 05/25/18 06:30 Globulin 3.4 gm/dL 05/25/18 06:30 Albumin/Globulin Ratio 1.0 (1.1-1.8) L 05/25/18 06:30 Triglycerides 47 mg/dL (35-160) 05/25/18 06:30 Cholesterol 140 mg/dL (130-200) 05/25/18 06:30 LDL Cholesterol Direct 70 mg/dL (0-129) 05/25/18 06:30 HDL Cholesterol 57 mg/dL (29-60) 05/25/18 06:30 Vitamin B12 495 pg/mL (239-931) 05/25/18 06:30 25-OH Vitamin D Total 43.5 NG/ML (30.0-100.0) 05/25/18 06:30 TSH 3rd Generation 0.22 mIU/mL (0.46-4.68) L 05/25/18 06:30 Urine Color Yellow (YELLOW) 05/24/18 19:32 Urine Appearance Clear (CLEAR) 05/24/18 19:32 Urine pH 6.0 (4.7-8.0) 05/24/18 19:32 Ur Specific [place] 1.025 (1.005-1.035) 05/24/18 19:32 Urine Protein Trace mg/dL (<30 mg/dL) H 05/24/18 19:32 Urine Glucose (UA) Negative mg/dL (NEGATIVE) 05/24/18 19:32 Urine Ketones Trace mg/dL (NEGATIVE) H 05/24/18 19:32 Urine Blood Negative (NEGATIVE) 05/24/18 19:32 Urine Nitrate Negative (NEGATIVE) 05/24/18 19:32 Urine Bilirubin Negative (NEGATIVE) 05/24/18 19:32 Urine Urobilinogen 0.2 E.U./dL (<1 E.U./dL) 05/24/18 19:32 Ur Leukocyte Esterase Negative Almita/uL (NEGATIVE) 05/24/18 19:32 Urine RBC 0 - 2 /hpf (0-2) 05/24/18 19:32 Urine WBC Negative /hpf (0-6) 05/24/18 19:32 Ur Epithelial Cells None /hpf (0-5) 05/24/18 19:32 Urine Bacteria Neg (NEG) 05/24/18 19:32 Attending/Attestation - Attestation I have personally seen and examined this patient.: Yes I have fully participated in the care of the patient.: Yes I have reviewed all pertinent clinical information, including history, physical exam and plan: Yes Notes (Text): 05/25/18 18:03 Attending note; Patient seen and examined with resident. Patient is alert and awake. Denies headache, dizziness. Denies any nausea, vomiting. Denies any urinary, bowel symptoms. Patient is a 88 yo Male with PMH of hypothyroidism, dementia, BPH presents to ED following a possible syncopal episode. According to patient's daughter patient was briefly unresponsive for a few minutes . No seizure like activity noted .no significant fall or injury. No urinary or bowel incontinence. Patient is currently completely awake and alert. CT head is negative . Recent MRI shows chronic microvascular changes. Cardiac workup is negative. Cardiac enzymes negative. Echocardiogram showed normal ejection fraction. Cardiology evaluation appreciated. Carotid Doppler without significant stenosis. Case discussed with neurology in detail. Patient can be discharged home. PT evaluation appreciated. Patient will follow up with neurology DR. bains next . Follow-up with PMD .
--- NOTE | 2018-05-25 18:04 | CON ---
DATE: 05/25/2018 NEUROLOGY CONSULT AGE: AN 88-year-old man. CHIEF COMPLAINT: Syncope. HISTORY OF PRESENT ILLNESS: An 88-year-old man with past medical history of hypothyroidism, cognitive impairment, on Namenda, BPH, who presents to the ER for a possible syncopal episode, apparent cognitive ability is the newspaper, and also was unresponsive for a few moments. No convulsive movements. No foaming of the mouth. No bowel and bladder incontinence. The patient admits he did not drink enough fluids throughout the day. In addition, he has poor sleep hygiene. He had elevated BUN as well as high potassium when he came in. CAT scan of the head shows no acute intracranial abnormality. He had an MRI in 01/2018, which showed chronic microvascular changes, but no acute intracranial abnormalities. Carotid Doppler showed 20% to 39% proximal ICA stenosis with anterior gluteal fold and vertebral arteries. He is moving all extremities. 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 Otherwise, no focal deficits seen. PAST MEDICAL HISTORY: As above. FAMILY HISTORY: Noncontributory. SOCIAL HISTORY: No illicit drug use, smoking, or EtOH abuse. ALLERGIES: TRAMADOL. REVIEW OF SYSTEMS: Fourteen-point review of systems is negative except as per the HPI. MEDICATIONS: Reviewed by nurses's reconciliation sheet. LABORATORY DATA: Sodium is 139, potassium 5.1, chloride 107, carbon dioxide 27, BUN 27, creatinine 1.5, random glucose 100. PHYSICAL EXAMINATION: VITAL SIGNS: Temperature 97.7, pulse rate 65, blood pressure 148/82, respiratory rate 18, oxygen saturation 97% on room air. GENERAL: The patient is sitting up in bed, in no acute distress. HEENT: Atraumatic, normocephalic. PERRLA. Extraocular muscles intact. NECK: Supple. No JVD, no adenopathy noted. LUNGS: Clear to auscultation. No adventitious sounds. HEART: S1 and S2, regular rate and rhythm. No murmurs, rubs, or gallops. ABDOMEN: Soft, nontender, and nondistended. Bowel sounds are present. EXTREMITIES: No clubbing. No cyanosis. Peripheral pulses 2+ felt bilaterally. NEUROLOGIC: The patient is alert and oriented to person, place, and year. Recall after 5 minutes is 0/3. Poor attention span. Slow thought process. Slow affect. Cranial nerves II through XII are intact. Motor exam: Moves all extremities equally. No pronator drift seen. Sensory exam: Light touch, pinprick, proprioception and vibration are intact. DTRs are 2+ throughout, 1 at both knees and ankles. Coordination: [id number] intact. No dysmetria noted. Gait is deferred for now. IMPRESSION: Syncope likely vasovagal in nature, neurocardiogenic, unlikely a seizure disorder, possible syncopal convulsion at this time. Recommend adequate hydration today, sleep hygiene. Continue with aspirin 81 mg for stroke prevention, in addition to continue his Namenda for his underlying cognitive impairment at 10 mg daily. He is clinically stable for discharge. He will follow up as an outpatient in our office. Thank you for this consult. Arron Olea MD
[2018-05-25] MEDS ORDERED: Latanoprost 2.5 ml Opht Soln OU SCH (22:00)
--- NOTE | 2018-05-25 22:21 | CON ---
DATE: CARDIOLOGY CONSULTATION REASON FOR CONSULTATION: Syncopal episode. HISTORY OF PRESENT ILLNESS: The patient is an 88-year-old male who lives with his daughter and who was noted to be unresponsive by his daughter while reading his newspaper, the patient has slumped and was drooling and was unresponsive to verbal commands; however, there was no reported seizure and the patient stood himself. He states he might have fallen asleep. The patient denies any prior similar episodes in the past and denies any history of syncope or fall in the past. The patient is unaware of any history of stroke and is unaware of any prior cardiac history otherwise. SOCIAL HISTORY: Nonsmoker. He lives with his daughter. MEDICATIONS: Aspirin 81 mg once a day, folic acid 1 mg daily, heparin 5000 units every 8 hours, Namenda 10 mg daily, Protonix 40 mg once a day, and Synthroid 88 mcg one day to be followed by 75 mcg the following day. REVIEW OF SYSTEMS: The patient denies any headache, dizziness, and he is unaware of any palpitation. PHYSICAL EXAMINATION: GENERAL: The patient is an elderly male who does not appear to be in any distress. VITAL SIGNS: Blood pressure most recent one 149/95, heart rate 74, temperature 97.9, and respirations 18. HEENT: Normocephalic. CHEST: Clear. HEART: S1 and S2 regular. ABDOMEN: Soft. EXTREMITIES: No edema. LABORATORY DATA: Today's SMA-7: Sodium 139, potassium 5.1, chloride 107, CO2 of 27, glucose 100, BUN 27, and creatinine 1.5. Two sets of troponins are negative. PT, PTT and INR are within normal limit. Today's hemoglobin and hematocrit 11.1 and 35.4, white count and platelet count are within normal limit. EKG revealed normal sinus rhythm at the rate of 68. Head CT scan without contrast and no acute intracranial findings. Carotid Doppler was performed; however, the report is still pending. Chest x-ray, no active disease. Echocardiographic study performed in 2016 revealed normal ejection fraction, moderate mitral insufficiency. ASSESSMENT: 1. Questionable syncopal episode. 2. Hypothyroidism. 3. Mild anemia. 4. Mild hyperkalemia today. 5. Uncontrolled diabetes mellitus. RECOMMENDATIONS: Continue subcutaneous heparin 5000 units every 8 hours. Continue Synthroid at 88 mcg followed by 75 mcg every other day. Continue aspirin 81 mg once a day. Folic acid 1 mg daily. Obtain echocardiogram and I will follow carotid Doppler study report. Bob Howell MD
[2018-05-26] MEDS ORDERED: Levothyroxine 75 MCG TAB PO SCH (06:00)
== END 2018-05-25 18:47 | disposition home or self-care (01) ==
LOC: ED 17:52 → ERH 19:20 → 2RSO 20:56
PROVIDERS: ADMIT Internal Medicine; ATTEND Internal Medicine
DX: R55 Syncope and collapse (principal); E11.65 Type 2 diabetes mellitus with hyperglycemia; D64.9 Anemia, unspecified; I65.23 Occlusion and stenosis of bilateral carotid arteries; I27.20 Pulmonary hypertension, unspecified; E03.9 Hypothyroidism, unspecified; E87.5 Hyperkalemia; F03.90 Unspecified dementia, unspecified severity, without behavioral disturbance, psychotic disturbance, mood disturbance, and anxiety; N40.0 Benign prostatic hyperplasia without lower urinary tract symptoms; M17.10 Unilateral primary osteoarthritis, unspecified knee; Z87.01 Personal history of pneumonia (recurrent); Z79.82 Long term (current) use of aspirin
CPT/HCPCS: 36415; 70450; 71045; 80053; 80061; 81001; 82306; 82550; 82607; 82948; 83615; 83735; 84100; 84439; 84443; 84484; 85025; 85610; 85730; 93005; 93306; 93880; 97116; 97161; 99285; G0378; G8978; G8979; G8980; J1644

== ENCOUNTER 2018-07-13 13:19 | Emergency (ER) | payer MEDICARE, BC ==
[2018-07-13 13:49] VITALS: BMI 24.5
[2018-07-13 14:01] VITALS: RESP 18
--- NOTE | 2018-07-13 15:47 | CT ---
Date of service: 07/13/2018 PROCEDURE: CT HEAD WITHOUT CONTRAST. HISTORY: head injury COMPARISON: 05/24/2018. CT head. 02/01/2018 MRI brain 08/25/2012 CT head. TECHNIQUE: Axial computed tomography images were obtained through the head/brain without intravenous contrast. Supplemental Coronal and Sagittal projections created and reviewed. Radiation dose: Total exam DLP = 811.33 mGy-cm. This CT exam was performed using one or more of the following dose reduction techniques: Automated exposure control, adjustment of the mA and/or kV according to patient size, and/or use of iterative reconstruction technique. FINDINGS: HEMORRHAGE: No intracranial hemorrhage. BRAIN: No mass effect or edema. Cortical and cerebellar atrophy, periventricular small vessel disease. VENTRICLES: Unremarkable. No hydrocephalus. CALVARIUM: Unremarkable. PARANASAL SINUSES: Chronic ethmoid and sphenoid air cell disease. Calcific focus base of skull, sphenoid sinus may represent an osteoma. Stable finding compared to prior studies. MASTOID AIR CELLS: Unremarkable as visualized. No inflammatory changes. OTHER FINDINGS: None. IMPRESSION: No acute intracranial abnormalities. No significant findings to account for the clinical presentation. No significant interval change compared to the prior examination(s).
--- NOTE | 2018-07-13 16:01 | CT ---
Date of service: 07/13/2018 PROCEDURE: CT MAXILLOFACIAL BONES WITHOUT CONTRAST HISTORY: facial pain s/p trauma COMPARISON: None available. TECHNIQUE: Contiguous axial CT images of the maxillofacial bones were obtained. Coronal and sagittal reformats were generated. Radiation dose: Total exam DLP = 781.24 mGy-cm. This CT exam was performed using one or more of the following dose reduction techniques: Automated exposure control, adjustment of the mA and/or kV according to patient size, and/or use of iterative reconstruction technique. FINDINGS: NASAL BONES: Age-indeterminate nasal bone fractures which are nondisplaced. ORBITS: Unremarkable. PARANASAL SINUSES/ MASTOIDS: Chronic ethmoid and sphenoid air cell disease. MAXILLA: Unremarkable. MANDIBLE/ TEMPOROMANDIBULAR JOINTS: Unremarkable. SKULL BASE: Unremarkable. TEMPORAL BONES: Middle ears and mastoid grossly unremarkable. OTHER FINDINGS: Facial, nasal soft tissue swelling. This is particularly about the nasal bones and nose. There may be a solitary foreign body adjacent to the right nasal bone. Cervical degenerative change primarily proliferative hypertrophic anterior non marginal osteophyte formation IMPRESSION: Frontal, facial/nasal soft tissue swelling. Nondisplaced nasal bone fractures. These are age indeterminate.
--- NOTE | 2018-07-13 16:20 | ED PDOC ---
Arrival/HPI - General Chief Complaint: Trauma Historian: Patient - History of Present Illness Narrative History of Present Illness (Text): 07/13/18 16:17 88yo male with pmhx of BPH, hypertension, Dementia bib EMS s/p fall for evaluation. Patient states he fell when he stepped on uneven pavement and landed face forward on the ground. Sustained laceration to his nose. He denies facial pain, focal weakness, nose bleed, LOC, focal weakness, back pain, neck pain, urinary/fecal incontinence, any other complaint. Past Medical History - Provider Review Nursing Documentation Reviewed: Yes - Past History Past History: No Previous - Infectious Disease Hx of Infectious Diseases: None - Tetanus Immunization Tetanus Immunization: Unknown - Cardiac Hx Pacemaker: No - Pulmonary Hx Respiratory Disorders: Yes Hx Pneumonia: Yes - Neurological Hx Paralysis: No - HEENT Hx HEENT Disorder: No (WEARS RX GLASSES) Hx Cataracts: Yes (LENS IMPLANT TO LEFT EYE,CATARACT SX RIGHT EYE) - Renal Hx Renal Disorder: No - Endocrine/Metabolic Hx Hypothyroidism: Yes - Hematological/Oncological Hx Blood Transfusions: No Hx Blood Transfusion Reaction: No - Integumentary Hx Dermatological Disorder: Yes (PATCHY DARKENED SKIN DICOLORATION TO ELIZABETH LE.AT TIMES ITCHY.) - Musculoskeletal/Rheumatological Hx Musculoskeletal Disorders: Yes (SPINAL STENOSIS) - Gastrointestinal Hx Gastrointestinal Disorders: No - Genitourinary/Gynecological Hx Prostate Problems: Yes (BPH) - Psychiatric Hx Emotional Abuse: No Hx Physical Abuse: No Hx Substance Use: No - Past Surgical History Past Surgical History: No Previous - Surgical History Hx Cataract Extraction: Yes (Lt eye) - Anesthesia Hx Anesthesia: Yes Hx Anesthesia Reactions: No Hx Malignant Hyperthermia: No - Suicidal Assessment Feels Threatened In Home Enviroment: No Family/Social History - Physician Review Nursing Documentation Reviewed: Yes Family/Social History: Unknown Family HX Smoking Status: Never Smoked Hx Alcohol Use: Yes (socially) Hx Substance Use: No Hx Substance Use Treatment: No Allergies/Home Meds Allergies/Adverse Reactions: Allergies tramadol HCl [From [facility]] Adverse Reaction (Mild, Verified 07/13/18 14:01) DIZZINESS NOTED ON H&P, PT REPORTS NOT REMEMBERING EXACTLY. Home Medications: Home Meds Medication Instructions Recorded Confirmed RX: Folic Acid 1 tab PO DAILY 05/24/18 07/13/18 RX: Home Med 0.5 mg PO DAILY 05/24/18 07/13/18 RX: Home Med 1 drop EACHEYE HS 05/24/18 07/13/18 RX: Levothyroxine [Synthroid] 75 mcg PO QOTHERDAY 05/24/18 07/13/18 RX: Levothyroxine [Synthroid] 88 mcg PO QOTHERDAY 05/24/18 07/13/18 RX: Memantine [Namenda] 1 tab PO DAILY 05/24/18 07/13/18 Review of Systems - Physician Review All systems were reviewed & negative as marked: Yes - Review of Systems Constitutional: Normal Eyes: Normal ENT: Normal Respiratory: Normal Cardiovascular: Normal Gastrointestinal: Normal Genitourinary Male: Normal Musculoskeletal: Normal Skin: Laceration (nose) Neurological: Normal Endocrine: Normal Hemo/Lymphatic: Normal Psychiatric: Normal Physical Exam Vital Signs Reviewed: Yes Vital Signs Temp Pulse Resp BP Pulse Ox 07/13/18 13:49 97.5 F L 60 18 191/92 H 95 Temperature: Afebrile Blood Pressure: Normal Pulse: Regular Respiratory Rate: Normal Appearance: Positive for: Well-Appearing, Non-Toxic, Comfortable Pain Distress: None Mental Status: Positive for: Alert and Oriented X 3 - Systems Exam Head: Present: Atraumatic, Normocephalic Pupils: Present: PERRL Extroacular Muscles: Present: EOMI Conjunctiva: Present: Normal Mouth: Present: Moist Mucous Membranes Neck: Present: Normal Range of Motion Respiratory/Chest: Present: Clear to Auscultation, Good Air Exchange. No: Respiratory Distress, Accessory Muscle Use Cardiovascular: Present: Regular Rate and Rhythm, Normal S1, S2. No: Murmurs Abdomen: No: Tenderness, Distention, Peritoneal Signs Back: Present: Normal Inspection Upper Extremity: Present: Normal Inspection. No: Cyanosis, Edema Lower Extremity: Present: Normal Inspection. No: Edema Neurological: Present: GCS=15, CN II-XII Intact, Speech Normal Skin: Present: Warm, Dry, Normal Color, Abrasion (1.5cmx 0.5cm linear avulsed abrasion noted to nasal bridge), Other (Avulsed abraison noted to right 5th lateral finger). No: Rashes Psychiatric: Present: Alert, Oriented x 3, Normal Insight, Normal Concentration Medical Decision Making ED Course and Treatment: 07/13/18 18:55 PT present to ED for stated history. He was neurologically intact. AAO x3 in ED. His wounds was irrigated with NS and bacitracine applied to the finger. Dermabond applied to nasal abrasion for hemostatis and bleeding was controlled. TD booster was updated Maxillofacial CT IMPRESSION: Frontal, facial/nasal soft tissue swelling. Nondisplaced nasal bone fractures. These are age indeterminate. Head IMPRESSION: No acute intracranial abnormalities. No significant findings to account for the clinical presentation. No significant interval change compared to the prior examination(s). 07/13/18 18:57 Placed placed on prophylactic abx All result was DW both pt and the family members Referred to ENT Advised not to blow his nose to avoid epistaxis. TRT ED for any new or worsening symptoms - RAD Interpretation Radiology Orders: 07/13/18 14:04 MAXILLOFACIAL W/O CONTRAST [CT] Stat 07/13/18 14:05 HEAD W/O CONTRAST [CT] Stat Disposition/Present on Arrival - Present on Arrival Any Indicators Present on Arrival: No History of DVT/PE: No History of Uncontrolled Diabetes: No Urinary Catheter: No History of Decub. Ulcer: No History Surgical Site Infection Following: None - Disposition Have Diagnosis and Disposition been Completed?: Yes Diagnosis: Abrasion, Facial contusion, Head injury Disposition: HOME/ ROUTINE Disposition Time: 16:20 Patient Plan: Discharge Condition: STABLE Discharge Instructions (ExitCare): Skin Abrasions, Closed Head Injury, Minor Head Injury (DC) Additional Instructions: Follow up with your Doctor/ENT Return to ED for any new or worsening symptoms Prescriptions: Cephalexin [Keflex] 500 mg PO TID #21 capsule Referrals: Harpreet Fajardo MD [Primary Care Provider] - Follow up with primary Jose F Addison DO [Staff Provider] - Follow up with primary Forms: [employer] (K[place]akh)
[2018-07-13] MEDS ORDERED: TDAP Vaccine 0.5 mL Syr IM ONE (16:22)
[2018-07-13] MEDS ORDERED: Bacitracin 500 Units/gm Oint Foilpak UD ONE (16:56)
[2018-07-13 17:40] VITALS: BP 136/76; PULSE 62; TEMP 97.8; O2SAT 97
== END 2018-07-13 17:59 | disposition home or self-care (01) ==
LOC: ED 13:19
DX: S00.83XA Contusion of other part of head, initial encounter (principal); W01.0XXA Fall on same level from slipping, tripping and stumbling without subsequent striking against object, initial encounter; Y92.480 Sidewalk as the place of occurrence of the external cause; Z23 Encounter for immunization